=== PATIENT | male | born 1995 | race American Indian/Alaskan Native ===

== ENCOUNTER 2024-12-17 14:01 | Emergency (ER) | payer MEDICAID, OTHER ==
[2024-12-17] MEDS: Sodium Chloride 0.9% 1,000 ML IV ONE (14:05)
[2024-12-17] MEDS: Norepinephrine Bit/D5W Premix 250 ML ONE (14:14)
[2024-12-17] MEDS: Lactated Ringers 1,000 ML IV ONE (14:17)
[2024-12-17 14:23] LABS: BICARBONATE,ARTERIAL 14.9 mmol/L (22-26); O2 DELIVERY DEVICE NASAL CANNULA; O2 SATURATION ARTERIAL 97 % (95-100); PCO2 ARTERIAL 31 mmHg (35-45); PO2 ARTERIAL 100 mmHg (70-100)
[2024-12-17 14:24] LABS: BASE EXCESS ARTERIAL -10 mmol/L ((-2)-(+3))
[2024-12-17] MEDS: Iopamidol 612 MG/ML 100 ML Bottle IVPUSH ONE (14:24)
[2024-12-17 14:25] LABS: ALLEN TEST PERFORMED
[2024-12-17 14:28] LABS: HEMATOCRIT 40.6 % (40.0-54.0); HEMOGLOBIN 13.8 g/dL (14.0-18.0); MEAN CORPUSCULAR HEMOGLOBIN 32.1 pg (27.0-34.0); MEAN CORPUSCULAR VOLUME 94.4 fL (80-100); PLATELET COUNT,PLT 334 10^3/uL (150-450); WHITE BLOOD CELL COUNT,WBC 26.8 10^3/uL (5.0-10.0)
[2024-12-17 14:34] LABS: BASOPHILS PERCENT AUTO 0.3 % (0.0-1.0); LYMPHOCYTES PERCENT AUTO 6.3 % (20.5-50.1); MONOCYTES PERCENT AUTO 6.4 % (2-8)
[2024-12-17 14:48] LABS: A/G RATIO 1.4; ALANINE AMINOTRANSFERASE,ALT 142 U/L (16-63); ALBUMIN 4.2 g/dL (3.4-5.0); ALKALINE PHOSPHATASE 70 U/L (46-116); ANION GAP 23.6 mEq/L (7-13); ASPARTATE AMNIOTRANSFERASE,AST 52 U/L (15-37); BILIRUBIN TOTAL 1.2 mg/dL (0.2-1.0); BLOOD UREA NITROGEN,BUN 13 mg/dL (7-18); BUN/CREATININE RATIO 5.7 (No establ ref range); CALCIUM 8.9 mg/dL (8.5-10.1); CARBON DIOXIDE,CO2 19 mmol/L (21-32); CHLORIDE,CL 103 mmol/L (98-107); CREATININE 2.29 mg/dL (0.70-1.30); ESTIMATED GFR 39 mL/min (>=60); GLUCOSE RANDOM 187 mg/dL (70-99); POTASSIUM,K 3.6 mmol/L (3.5-5.1); PROTEIN TOTAL,TP 7.3 g/dL (6.4-8.2); SODIUM,NA 142 mmol/L (136-145)
[2024-12-17] MEDS: Iopamidol 755 Mg/ML 100 ML Bottle IVPUSH ONE (14:48)
[2024-12-17 14:50] LABS: INR 1.1 (0.9-1.2); PROTHROMBIN TIME 11.6 SEC (9.0-12.0)
[2024-12-17 14:51] LABS: LACTIC ACID 8.4 mmol/L (0.4-2.0)
[2024-12-17] MEDS: ceFAZolin 2 GM Vial IVPUSH ONE (14:57)
[2024-12-17] MEDS: VANCOmycin 1 GM in Sodium Chloride 0.9% 250 ML IV ONE (14:59)
[2024-12-17 15:04] LABS: LYMPHOCYTES PERCENT MAN 4 % (20-50); MONOCYTES PERCENT MAN 5 % (2-8); SEG NEUTROPHILS PERCENT MAN 91 % (42-75)
[2024-12-17] MEDS: Ondansetron 4 MG/2 ML SDV ONE (15:04)
[2024-12-17] MEDS: Midazolam 1 MG/ML 2 ML SDV ONE (15:05)
[2024-12-17] MEDS: Norepinephrine Bit/D5W Premix 250 ML IV SCH (15:07)
[2024-12-17] MEDS: fentaNYL 100 MCG/2 ML SDV ONE (15:08)
[2024-12-17] MEDS: HYDROmorphone 1 MG/ML Syringe IVPUSH ONE ×2 (15:16→16:20)
[2024-12-17] MEDS: Ondansetron 4 MG/2 ML SDV IVPUSH ONE (15:18)
[2024-12-17] MEDS: Piperacillin/Tazobactam 4.5 GM in Sodium Chloride 0.9% 100 ML IV ONE (15:41)
[2024-12-17] MEDS ORDERED: Naloxone 2 MG/2 ML Syringe IVPUSH PRN (16:05)
[2024-12-17] MEDS ORDERED: Metoclopramide 10 MG/2 ML SDV ONE (16:39)
[2024-12-17 16:47] LABS: HEMATOCRIT 35.6 % (40.0-54.0); HEMOGLOBIN 12.2 g/dL (14.0-18.0)
[2024-12-17 16:48] LABS: APPEARANCE,URINE CLEAR (CLEAR); BILIRUBIN,URINE NEGATIVE (NEGATIVE); COLOR,URINE YELLOW (YELLOW); GLUCOSE,URINE NEGATIVE (NEGATIVE); KETONES,URINE 15 (NEGATIVE); LEUKOCYTE ESTERASE,URINE NEGATIVE (NEGATIVE); NITRITE,URINE NEGATIVE (NEGATIVE); OCCULT BLOOD,URINE TRACE-INTACT (NEGATIVE); PROTEIN,URINE 30 (NEGATIVE); UROBILINOGEN,URINE 0.2 mg/dL (0.2-1.0)
[2024-12-17 16:53] LABS: AMPHETAMINES,URINE NEGATIVE (NEGATIVE); BARBITURATES,URINE NEGATIVE (NEGATIVE); BENZODIAZEPINE,URINE NEGATIVE (NEGATIVE); MDMA (ECSTASY), URINE NEGATIVE (NEGATIVE); METHADONE,URINE NEGATIVE (NEGATIVE); METHAMPHETAMINES,URINE NEGATIVE (NEGATIVE); OPIATES,URINE NEGATIVE (NEGATIVE); OXYCODONE,URINE NEGATIVE (NEGATIVE); PHENCYCLIDINE,URINE NEGATIVE (NEGATIVE); TCA,URINE NEGATIVE (NEGATIVE)
[2024-12-17 16:57] LABS: AMORPHOUS SEDIMENT,URINE FEW /HPF (NOT SEEN); BACTERIA,URINE MODERATE /HPF (0-FEW/HPF); EPITHELIAL CELLS,URINE FEW /HPF (NOT SEEN); MUCUS,URINE FEW /LPF (NOT SEEN); RBC,URINE 0-5 /HPF (0-5)
== END 2024-12-17 16:57 ==
LOC: DL.ED 14:01
DX: S21.112A Laceration without foreign body of left front wall of thorax without penetration into thoracic cavity, initial encounter (principal); S31.119A Laceration without foreign body of abdominal wall, unspecified quadrant without penetration into peritoneal cavity, initial encounter; S31.115A Laceration without foreign body of abdominal wall, periumbilic region without penetration into peritoneal cavity, initial encounter; Z88.8 Allergy status to other drugs, medicaments and biological substances; W45.8XXA Other foreign body or object entering through skin, initial encounter
CPT/HCPCS: 32551; 36415; 36600; 51701; 70450; 71045; 71260; 72125; 74018; 74177; 80053; 80305; 81001; 82803; 82947; 83605; 84484; 85014; 85018; 85025; 85610; 86850; 86900; 86901; 87040; 93005; 93010; 96361; 96365; 96366; 96368; 96375; 96376; 99285; 99291; 99292; C1758; G0390; J0690; J1171; J2250; J2405; J2543; J3010; J7030; J7050; J7120; Q9967